=== PATIENT | female | born 1960 | race Caucasian/White ===

== ENCOUNTER 2020-04-02 12:04 | Emergency (ER) | payer OTHER ==
[~2020-04-02] VITALS: Ht 162.6 cm; Wt 68.0 kg
[2020-04-02 13:42] VITALS: Ht 162.6 cm; Wt 68.0 kg
[2020-04-02 15:19] VITALS: BP 124/56
== END 2020-04-02 15:19 | disposition home or self-care (01) ==
LOC: ED 12:04
DX: U07.1 COVID-19 (principal); E11.9 Type 2 diabetes mellitus without complications
CPT/HCPCS: Q0092; U0003-CS